=== PATIENT | male | born 1990 | race Hispanic/Latino ===

== ENCOUNTER 2017-08-22 13:05 | Emergency (ER) | payer OTHER ==
[2017-08-22 14:13] VITALS: BP 139/84
--- NOTE | 2017-08-22 14:29 | Emergency Department Report ---
- General Chief Complaint: Extremity Injury, Lower Stated Complaint: RIGHT KNEE LACERATION Time Seen by Provider: 08/22/17 14:28 Source: patient, family Mode of arrival: Ambulatory Limitations: No Limitations - History of Present Illness Initial Comments: Patient here report that he cut his right knee. He said he cut it with a chain link saw that he was using to work today. It was reported in triage note the patient with 4 inch laceration 1.5 inch in depth. Patient reports that his tetanus shot is up-to-date. Incident occurred approximately 2 hours prior to arrival to the emergency room. Patient was accompanied by his boss. He said he went to urgent care and he cleaned it and put dressing on it and sent him to the emergency room because they said that it was too deep for them to repeat her. Patient complained of pain with movement 5 out of 10 feels sore. Pain is better with rest. No medication taken prior to coming to the emergency room. -: This afternoon Extremity Location: Right: Knee (laceration) Place: work Patient Tetanus UTD: Yes Context: accidental Associated Symptoms: pain. denies: loss of feeling/numbness, suspect foreign body present, unable to move injured part, weakness followed by dizziness, nausea/vomiting, fever Treatments Prior to Arrival: bandage - Related Data Previous Rx's Medication Instructions Recorded Last Taken Type Ibuprofen [Motrin] 600 mg PO Q8H PRN #15 tablet 08/22/17 Unknown Rx Sulfamethoxazole/Trimethoprim 1 each PO BID #14 tablet 08/22/17 Unknown Rx [Bactrim DS TAB] Allergies Allergy/AdvReac Type Severity Reaction Status Date / Time amoxicillin Allergy Rash Verified 08/22/17 14:09 hydrocodone Allergy Rash Verified 08/22/17 14:09 shellfish derived Allergy Rash Verified 08/22/17 14:09 ED Review of Systems ROS: Stated complaint: RIGHT KNEE LACERATION Other details as noted in HPI Comment: All other systems reviewed and negative Constitutional: no symptoms reported Respiratory: no symptoms reported Cardiovascular: denies: chest pain, dyspnea on exertion, orthopnea, edema, syncope Endocrine: denies: no symptoms reported Gastrointestinal: denies: abdominal pain, nausea, vomiting Musculoskeletal: arthralgia. denies: back pain, joint swelling, myalgia Skin: other (laceration rt knee). denies: rash Neurological: denies: headache, weakness, numbness, paresthesias, confusion, abnormal gait, vertigo ED Past Medical Hx - Past Medical History Previous Medical History?: No - Surgical History Past Surgical History?: Yes Hx Appendectomy: Yes Additional Surgical History: Left middle finger surgery - Family History Family history: no significant - Social History Smoking Status: Current Every Day Smoker Substance Use Type: Alcohol - Medications Home Medications: Home Medications Medication Instructions Recorded Confirmed Last Taken Type Ibuprofen [Motrin] 600 mg PO Q8H PRN #15 tablet 08/22/17 Unknown Rx Sulfamethoxazole/Trimethoprim 1 each PO BID #14 tablet 08/22/17 Unknown Rx [Bactrim DS TAB] ED Physical Exam - General Limitations: No Limitations General appearance: alert, in no apparent distress - Head Head exam: Present: atraumatic, normocephalic, normal inspection - Eye Eye exam: Present: normal appearance, PERRL, EOMI Pupils: Present: normal accommodation - ENT ENT exam: Present: normal exam, normal orophraynx - Neck Neck exam: Present: normal inspection, full ROM. Absent: tenderness, meningismus, lymphadenopathy - Respiratory Respiratory exam: Present: normal lung sounds bilaterally. Absent: respiratory distress, chest wall tenderness, accessory muscle use, decreased breath sounds - Cardiovascular Cardiovascular Exam: Present: regular rate, normal rhythm, normal heart sounds. Absent: systolic murmur, diastolic murmur - GI/Abdominal GI/Abdominal exam: Present: soft, normal bowel sounds. Absent: distended, tenderness, guarding, rebound, rigid - Extremities Exam Extremities exam: Present: normal inspection, full ROM, tenderness (tenderness to palpate her right knee laceration.), normal capillary refill, other (patient with full active range of motion to all extremity but reports pain with flexing and extending his right knee. 5/5 strength in all extremities. No neurovascular compromise. +2 pulses in all extremities.). Absent: pedal edema , joint swelling, calf tenderness - Back Exam Back exam: Present: normal inspection, full ROM. Absent: tenderness, CVA tenderness (R), CVA tenderness (L), muscle spasm, paraspinal tenderness, vertebral tenderness, rash noted - Neurological Exam Neurological exam: Present: alert, oriented X3, normal gait, reflexes normal. Absent: motor sensory deficit - Psychiatric Psychiatric exam: Present: normal affect, normal mood - Skin Skin exam: Present: warm, dry, normal color, other (laceration right knee) - Expanded Skin Exam Expanded Type of lesion: Present: laceration Distribution of rash: RLE (Rt knee) Description of rash: Present: size (5 cm in length, 0.5 cm depth), tenderness ( RT knee). Absent: erythematous ED Course Vital Signs 08/22/17 14:09 Temperature 98 F Pulse Rate 84 Respiratory 18 Rate Blood Pressure 139/84 O2 Sat by Pulse 99 Oximetry - Reevaluation(s) Reevaluation #1: 08/22/17 17:15 She given Percocet 02/3252 tablets, clindamycin 600 mg IM and Benadryl 50 mg IM due to reported allergy from Percocet which patient said these taken in the past. Tetanus vaccine is up-to-date. See procedure note for details on laceration repair - Laceration /Wound Repair Right Anterior Knee Wound Location: lower extremity (right anterior knee) Wound Length (cm): 5 (0.5 cm in depth) Wound's Depth, Shape: into muscle, linear Wound Explored: contaminated Irrigated w/ Saline (ccs): 500 (plans with iodine and irrigated with normal saline) Betadine Prep?: Yes Anesthesia: 0.5% Sensorcaine (Marcaine) Volume Anesthetic (ccs): 5 Wound Debrided: extensive Wound Repaired With: sutures Suture Size/Type: 4:0 (perm hand silk) Number of Sutures: 11 Layer Closure?: Yes Deep Layer Suture Size/Type: 5:0, chromic Number Deep Layer Sutures: 4 Sterile Dressing Applied?: Yes Progress: Condition instructed to remove dressing tomorrow. His tetanus vaccine is up-to- date. I also instructed him that he will need to rest and no aggressive activity to his right knee for at least 4 days ED Medical Decision Making - Radiology Data Radiology results: report reviewed Severe for right knee revealed no acute bony abnormalities and no foreign body. - Medical Decision Making ED course: She had presented emergency room after going to urgent care for laceration to his right knee. He was found to have 5 cm laceration with 0.5 cm depth. Triage notes reflect the patient has 4 inch long laceration 1.5 inch in depth. Dressing removed and laceration cleansed with Betadine and forcefully irrigated with normal saline. Laceration repair under sterile procedure. Please see procedure note for details and had x-ray done of his right knee which revealed no acute bony abnormalities or foreign body. Patient given Percocet 5/325 2 tablets, Benadryl 50 mg IM and clindamycin 600 mg IM in emergency room for relief of pain and also to cover for infection because his wound was cut with dirty object. Discussed the patient that he will need to return to the emergency room and 7-10 days to have stitches removed from right knee. I also discussed with him that I will place him on antibiotic to prevent infection. Pt without any restriction to his right knee pre-and post repair. He reported that his tetanus shot is less than 5 years. Patient discharged home in stable condition with his coworker. Prescription given for Motrin and Bactrim DS Critical care attestation.: If time is entered above; I have spent that time in minutes in the direct care of this critically ill patient, excluding procedure time. ED Disposition Clinical Impression: Arthralgia of right knee Laceration of right knee without complication Qualifiers: Encounter type: initial encounter Qualified Code(s): S81.011A - Laceration without foreign body, right knee, initial encounter Right knee injury Qualifiers: Encounter type: initial encounter Qualified Code(s): S89.91XA - Unspecified injury of right lower leg, initial encounter Injury of right knee Qualifiers: Encounter type: initial encounter Qualified Code(s): S89.91XA - Unspecified injury of right lower leg, initial encounter Disposition: TO HOME OR SELFCARE Is pt being admited?: No Does the pt Need Aspirin: No Condition: Stable Instructions: Arthralgia (ED), Suture Care (ED), Laceration (ED), Absorbable Suture Care (ED), Acute Wound Care (ED) Additional Instructions: Take antibiotic as prescribed Follow-up with your primary care physician in 2 days Keep affected area clean and dry. Followed discharge instruction on acute wound care . Please return to emergency room if you develop increasing redness, streaking, fever, difficulty moving in and the left forearm and increase in pain. Return to emergency room in 7-10 days for suture removal Prescriptions: Ibuprofen [Motrin] 600 mg PO Q8H PRN #15 tablet PRN Reason: Pain Sulfamethoxazole/Trimethoprim [Bactrim DS TAB] 1 each PO BID #14 tablet Referrals: PRIMARY CARE,MD [Primary Care Provider] - 2-3 Days return to, Emergency room [Other] - 7-10 days Forms: Work/School Release Form(ED)
[2017-08-22] MEDS ORDERED: CLEOCIN IM ONE (14:30)
[2017-08-22] MEDS ORDERED: MARCAINE 0.5% INFILTRATI ONE (14:30)
[2017-08-22] MEDS ORDERED: NACL 0.9% IR ONE (14:30)
[2017-08-22] MEDS ORDERED: BENADRYL IM ONE (14:32)
[2017-08-22] MEDS ORDERED: PERCOCET 5/325 PO ONE (14:32)
--- NOTE | 2017-08-22 15:02 | XRay Report ---
FINAL REPORT PROCEDURE: XR KNEE 3V RT TECHNIQUE: Three views of the right knee are submitted. HISTORY: RT knee injury with deep lac COMPARISON: None FINDINGS: Soft tissue laceration is seen on one view medially. There is no evident fracture or dislocation. Joint spaces are maintained. There is no intra-articular loose body. There is no evident effusion. IMPRESSION: Soft tissue laceration without evident fracture.
== END 2017-08-22 17:41 | disposition home or self-care (01) ==
LOC: ED 13:05
DX: S81.011A Laceration without foreign body, right knee, initial encounter (principal); F17.210 Nicotine dependence, cigarettes, uncomplicated; Z88.6 Allergy status to analgesic agent; Z88.1 Allergy status to other antibiotic agents; Z91.013 Allergy to seafood; W45.8XXA Other foreign body or object entering through skin, initial encounter; Y93.89 Activity, other specified; Y92.89 Other specified places as the place of occurrence of the external cause; Y99.8 Other external cause status
CPT/HCPCS: 12032; 73562; 96372; 99283; J1200